=== PATIENT | female | born 1970 | race Caucasian/White ===

== ENCOUNTER → 2024-01-11 08:25 | Outpatient (REF) | payer BC, SELFPAY ==
[2024-01-11 09:14] LABS: % Eosinophils 2.5 % (0-6); % Lymphocytes 52.3 % (20.5-51.1); % Monocytes 7.1 % (1.7-9.3); % Neutrophils 37.1 % (42.2-75.2); Absolute Eosinophils 0.1 10^3/uL (0-0.7); Absolute Lymphocytes 2.1 10^3/uL (1.2-3.4); Absolute Monocytes 0.3 10^3/uL (0.1-0.6); Absolute Neutrophils 1.5 10^3/uL (1.4-6.5); Hematocrit 36.5 % (37.0-47.0); Hemoglobin 12.3 g/dL (12.0-16.0); Mean Corp Hgb Conc. 33.7 g/dL (33.0-37.0); Mean Corpuscular Hgb 29.7 pg (27.0-31.0); Mean Corpuscular Volume 88.2 fL (81.0-99.0); Mean Platelet Volume 10.8 fL (7.4-10.4); Nucleated Red Blood Cells % 0 %; Platelet Count 192 10^3/uL (130-400); Red Blood Cell Count 4.14 10^6/uL (4.20-5.40); White Blood Cell Count 3.9 10^3/uL (4.8-10.8)
[2024-01-11 10:16] LABS: ALT (SGPT) 22 U/L (0-35); AST (SGOT) 28 U/L (14-36); Albumin 4.5 g/dl (3.5-5.0); Alkaline Phosphatase 82 U/L (38-126); Blood Urea Nitrogen 16 mg/dl (7-17); Calcium 9.9 mg/dl (8.4-10.2); Carbon Dioxide 29 mmol/L (22-30); Chloride 103 mmol/L (98-107); Glucose 88 mg/dl (70-99); HDL Cholesterol 86 mg/dl; LDL Cholesterol, Calculated 90 mg/dl; Potassium 4.3 mmol/L (3.5-5.1); Sodium 140 mmol/L (135-145); Total Bilirubin 1.3 mg/dl (0.2-1.3); Total Cholesterol 191 mg/dl (50-199); Total Protein 6.8 g/dl (6.3-8.2); Triglyceride 79 mg/dl (10-149); Very Low Density Lipoprotein 15 mg/dl (0-30); eGFR > 60.00
[2024-01-11 10:57] LABS: TSH Reflex To Free T4 2.86 uIU/ml (0.47-4.68)
== END ==
LOC: REG 08:25
PROVIDERS: ATTENDING PHYSICIAN Family Medicine
DX: Z00.00 Encounter for general adult medical examination without abnormal findings (principal)
CPT/HCPCS: 36415; 80053; 80061; 84443; 85025

== ENCOUNTER → 2024-03-11 11:39 | Outpatient (REF) | payer BC, SELFPAY | LOC: REG 11:39 | PROVIDERS: ATTENDING PHYSICIAN Family Medicine; FAMILY PHYSICIAN Family Medicine | DX: D83.9 Common variable immunodeficiency, unspecified (principal) | CPT/HCPCS: 36415 ==

== ENCOUNTER → 2024-03-27 11:27 | Outpatient (REF) | payer BC, SELFPAY | LOC: WDC 11:27 | PROVIDERS: ATTENDING PHYSICIAN Obstetrics & Gynecology Gynecology; FAMILY PHYSICIAN Family Medicine | DX: Z12.31 Encounter for screening mammogram for malignant neoplasm of breast (principal) | CPT/HCPCS: 77063; 77067 ==

== ENCOUNTER 2024-07-04 07:51 | Emergency (ER) | payer BC, SELFPAY ==
[2024-07-04 07:59] VITALS: BP 109/76
--- NOTE | 2024-07-04 09:00 | ED.MUSCINJ ---
HPI-Injury
General
Chief Complaint: Musculo-Skeletal Complaint
Source: patient
Exam Limitations: none
Time Seen by Provider: 07/04/24 08:45
History of Present Illness-Injury
Initial Injury comments:
53-year-old female presents complaining of right middle finger swelling and pain since about 10 days ago. She may have injured it at [employer] but she does not recall. She notes swelling and stiffness to her joint of her finger. No other
complaints at this time
Past History
Past History
ED Past Medical History: Other (cvid)
ED Past Surgical History:
Social History
Tobacco: Non-smoker
Alcohol: Occasional
Drug: None
Personal:
Living: with family
Phy Exam
Physical Exam
Physical Exam:
General: Well-appearing female nontoxic no acute respiratory distress
HEENT: Normocephalic atraumatic
Musculoskeletal exam: Right middle finger swollen at the PIP joint. She is slightly tender over the lateral aspects of the joint. She has decreased flexion of the joint however is able initiate flexion DIP and PIP joints. No deformities otherwise.
Skin is intact without erythema or excessive
Injury Course
Orders/Labs/Results
Orders:
Orders
07/04/24 08:02
Finger(s)/Thumb 2 View Rt [CR Finger(s)/thumb Min 2 Vw Rt] Urgent
Comment: may have injurie finger at [employer] last
Reason For Exam: right middle finger swollen
Indicate Which Finger:: Middle Finger
MDM/Problems Addressed
Differential Diagnosis Includes:
Right long finger pain with swelling about the PIP joint. Question sprain versus fracture versus dislocation. No sign of infectious or
I have personally visualized x-rays of the right long finger which are negative for acute fracture or dislocation. I suspect underlying sprain. Given 10 days since injury recommended against splinting and advise getting motion back. No indication
for any further intervention at this time. Stable for discharge.
*Critical Care Note
Total Time (30-74mins, 75-104mins- exclusive of procedures): Not Applicable
ED Attending Note
-
Portions of this chart may have been created with voice recognition software.� Occasional wrong word or��sound alike� substitutions may have occurred due to the inherent limitations of voice recognition software.
Discharge Plan
Departure
Patient Disposition: Home (Routine Discharge)
Date of Disposition: 07/04/24
Time of Disposition: 09:03
Patient with high blood pressure during this ER visit?: No
Discharge Problem:
Finger sprain
Instructions: Muscle and Bone Pain (DC)
Prescriptions:
No Action
norethindrone-ethin estradiol [Ortho-Novum (28)] 1 EACH tablet
1 ea PO DAILY
Referrals:
Tere Grady MD [Family Provider] -
Activity Restrictions/Additional Instructions:
Continue to attempt to move your finger. He is ibuprofen if needed for pain or swelling. Return if worse otherwise consider following up with hand specialist if symptoms persist
Interventions
Interventions:
*Risk Screen - Suicide Last Done: 07/04/24 07:59
*Neglect/Abuse Screening Last Done: 07/04/24 07:59
Discharge Date and Time
Print Language: RWANDAN
== END 2024-07-04 09:13 | disposition home or self-care (01) ==
LOC: EMR 07:51
PROVIDERS: EMERGENCY PHYSICIAN Emergency Medicine; FAMILY PHYSICIAN Family Medicine
DX: S63.612A Unspecified sprain of right middle finger, initial encounter (principal); X58.XXXA Exposure to other specified factors, initial encounter
CPT/HCPCS: 99283; 73140

== ENCOUNTER → 2024-07-18 15:33 | Outpatient (REF) | payer BC, SELFPAY ==
[2024-07-18 16:37] LABS: % Basophils 0.5 % (0-2); % Eosinophils 1.8 % (0-6); % Immature Granulocytes 0.2 % (0-0.5); % Lymphocytes 40.9 % (20.5-51.1); % Monocytes 5.2 % (1.7-9.3); % Neutrophils 51.4 % (42.2-75.2); Absolute Eosinophils 0.1 10^3/uL (0-0.7); Absolute Lymphocytes 2.3 10^3/uL (1.2-3.4); Absolute Monocytes 0.3 10^3/uL (0.1-0.6); Absolute Neutrophils 2.9 10^3/uL (1.4-6.5); Hematocrit 36.1 % (37.0-47.0); Hemoglobin 11.9 g/dL (12.0-16.0); Mean Corpuscular Hgb 29.5 pg (27.0-31.0); Mean Corpuscular Volume 89.4 fL (81.0-99.0); Mean Platelet Volume 10.7 fL (7.4-10.4); Nucleated Red Blood Cells % 0 %; Platelet Count 218 10^3/uL (130-400); Red Blood Cell Count 4.04 10^6/uL (4.20-5.40); Red Cell Dist. Width 12.7 % (11.5-14.5); White Blood Cell Count 5.6 10^3/uL (4.8-10.8)
[2024-07-18 16:57] LABS: ALT (SGPT) 21 U/L (0-35); AST (SGOT) 33 U/L (14-36); Albumin 4.7 g/dl (3.5-5.0); Alkaline Phosphatase 93 U/L (38-126); Blood Urea Nitrogen 16 mg/dl (7-17); Calcium 9.8 mg/dl (8.4-10.2); Carbon Dioxide 26 mmol/L (22-30); Chloride 102 mmol/L (98-107); Glucose 82 mg/dl (70-99); Potassium 4.3 mmol/L (3.5-5.1); Sodium 139 mmol/L (135-145); Total Bilirubin 0.9 mg/dl (0.2-1.3); Total Protein 7.2 g/dl (6.3-8.2); eGFR > 60.00
== END ==
LOC: REG 15:33
PROVIDERS: ATTENDING PHYSICIAN Internal Medicine Hematology & Oncology; FAMILY PHYSICIAN Family Medicine
DX: D72.819 Decreased white blood cell count, unspecified (principal)
CPT/HCPCS: 36415; 80053; 85025

== ENCOUNTER → 2024-08-13 08:25 | Outpatient (REF) | payer BC, SELFPAY ==
[2024-08-13 09:53] LABS: % Eosinophils 1.8 % (0-6); % Immature Granulocytes 0.4 % (0-0.5); % Lymphocytes 32.5 % (20.5-51.1); % Monocytes 6.5 % (1.7-9.3); % Neutrophils 57.8 % (42.2-75.2); Absolute Basophils 0.1 10^3/uL (0-0.2); Absolute Eosinophils 0.1 10^3/uL (0-0.7); Absolute Lymphocytes 1.6 10^3/uL (1.2-3.4); Absolute Monocytes 0.3 10^3/uL (0.1-0.6); Absolute Neutrophils 2.9 10^3/uL (1.4-6.5); Hematocrit 39.1 % (37.0-47.0); Hemoglobin 12.9 g/dL (12.0-16.0); Mean Corpuscular Hgb 29.1 pg (27.0-31.0); Mean Corpuscular Volume 88.1 fL (81.0-99.0); Mean Platelet Volume 10.9 fL (7.4-10.4); Nucleated Red Blood Cells % 0 %; Platelet Count 200 10^3/uL (130-400); Red Blood Cell Count 4.44 10^6/uL (4.20-5.40); Red Cell Dist. Width 12.6 % (11.5-14.5)
[2024-08-13 10:50] LABS: ALT (SGPT) 25 U/L (0-35); AST (SGOT) 29 U/L (14-36); Albumin 4.4 g/dl (3.5-5.0); Alkaline Phosphatase 97 U/L (38-126); Blood Urea Nitrogen 22 mg/dl (7-17); Calcium 9.8 mg/dl (8.4-10.2); Carbon Dioxide 28 mmol/L (22-30); Chloride 103 mmol/L (98-107); Glucose 97 mg/dl (70-99); Potassium 4.4 mmol/L (3.5-5.1); Sodium 138 mmol/L (135-145); Total Bilirubin 1.1 mg/dl (0.2-1.3); Total Protein 6.9 g/dl (6.3-8.2); eGFR > 60.00
[2024-08-15 00:43] LABS: IgG 948 mg/dl (700-1600); IgM 53 mg/dl (40-230)
[2024-08-15 00:44] LABS: IgA 44 mg/dl (70-400)
== END ==
LOC: REG 08:25
PROVIDERS: ATTENDING PHYSICIAN Internal Medicine Allergy & Immunology; FAMILY PHYSICIAN Family Medicine
DX: D83.9 Common variable immunodeficiency, unspecified (principal)
CPT/HCPCS: 36415; 80053; 82784; 85025

== ENCOUNTER → 2025-01-14 08:14 | Outpatient (REF) | payer BC, SELFPAY ==
[2025-01-14 08:58] LABS: Hematocrit 37.1 % (37.0-47.0); Hemoglobin 12.3 g/dL (12.0-16.0); Mean Corp Hgb Conc. 33.2 g/dL (33.0-37.0); Mean Corpuscular Volume 88.1 fL (81.0-99.0); Nucleated Red Blood Cells % 0 %; Platelet Count 204 10^3/uL (130-400); Red Cell Dist. Width 12.4 % (11.5-14.5)
[2025-01-14 09:33] LABS: ALT (SGPT) 17 U/L (0-35); AST (SGOT) 21 U/L (14-36); Albumin 4.7 g/dl (3.5-5.0); Alkaline Phosphatase 75 U/L (38-126); Blood Urea Nitrogen 17 mg/dl (7-17); Calcium 9.9 mg/dl (8.4-10.2); Carbon Dioxide 27 mmol/L (22-30); Chloride 107 mmol/L (98-107); Glucose 91 mg/dl (70-99); HDL Cholesterol 82 mg/dl; LDL Cholesterol, Calculated 92 mg/dl; Potassium 4.0 mmol/L (3.5-5.1); Sodium 141 mmol/L (135-145); Total Protein 7.2 g/dl (6.3-8.2); Very Low Density Lipoprotein 17 mg/dl (0-30); eGFR > 60.00
[2025-01-14 13:34] LABS: Vitamin D, 25-OH*** 34.6 ng/mL (30-80)
[2025-01-14 14:07] LABS: Vitamin B12 463 pg/ml (239-931)
== END ==
LOC: REG 08:14
PROVIDERS: ATTENDING PHYSICIAN Internal Medicine Allergy & Immunology; FAMILY PHYSICIAN Family Medicine
DX: Z00.00 Encounter for general adult medical examination without abnormal findings (principal); E04.1 Nontoxic single thyroid nodule; D72.819 Decreased white blood cell count, unspecified; E53.8 Deficiency of other specified B group vitamins; E55.9 Vitamin D deficiency, unspecified; D83.9 Common variable immunodeficiency, unspecified
CPT/HCPCS: 36415; 80053; 80061; 82306; 82607; 82784; 84443; 85025